=== PATIENT | female | born 1960 | race Hispanic/Latino ===

== ENCOUNTER 2017-04-12 11:26 | Inpatient (IN) | payer MEDICARE ==
--- NOTE | 2017-04-12 11:37 | C.PDOC ---
History Of Present Illness PMHx of PE, LE DVTs, HTN, Left foot drop, S/P Gastric Bypass surgery and cholecystectomy Time Seen by Provider: 04/12/17 11:36 Chief Complaint (Nursing): Chest Pain Past Medical History Vital Signs: Last Vital Signs Temp 97.8 F 04/12/17 11:28 Pulse 80 04/12/17 11:28 Resp 18 04/12/17 11:28 BP 118/81 04/12/17 11:28 Pulse Ox 100 04/12/17 11:37 - Medical History PMH: Back Problems, Deep Vein Thrombosis, HTN, Pulmonary Embolism Denies: Chronic Kidney Disease Surgical History: Back Surgery - [facility] Procedures RESECTION OF GALLBLADDER, PERCUTANEOUS ENDOSCOPIC APPROACH (11/01/15) Family History: States: Unknown Family Hx - Social History Hx Alcohol Use: Yes Hx Substance Use: No - Immunization History Hx Tetanus Toxoid Vaccination: No Hx Influenza Vaccination: No Hx Pneumococcal Vaccination: No ED Course And Treatment ECG: Interpreted By Me ECG Rhythm: Sinus Rhythm ECG Interpretation: Normal Rate From EC O2 Sat by Pulse Oximetry: 100 Progress - Data Reviewed Data Reviewed: Lab, Diagnostic imaging, EKG, Old records
--- NOTE | 2017-04-12 11:58 | C.PDOC ---
History Of Present Illness 56 y/o female presents to ED s/p trip and fall prior to arrival, pt now complaining of left chest, left elbow and left knee injury with abrasions to the elbow. She tripped and fell onto her left side. Left elbow pain worsens with movement. Pt reports pending prescription fill of foot brace for chronic left foot drop. Pt denies head injury. Pt states while falling, "I was twisting and my left chest started hurting." Pain is diffuse to left side and constant, worse with breathing. Questionable direct chest wall trauma. Pt also with abrasion to left knee, pain worsens with flexion. 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 PS PENDING RX FILL OF FOOT BRACE FOR CHRONIC L FOOT DROP. TRIPPED, FELL ONTO L SIDE. PAIN L ELBOW WORSE W MOVEMENT, +ABRASIONS. DENIES HEAD INJURY. PS WHILE FALLING "I WAS TWISTING AND MY L CHEST STARTED HURTING". PAIN DIFFUSE LEFT SIDED, CONSTANT. ? DIRECT CHEST WALL TRAUMA. WORSE W BREATHING. +L KNEE ABRASION, PAIN WORSE W FLEXION. PS CURRENT SKIN LESIONS DUE TO "SUN POISONING THAT I GET EVER SINCE I WAS A CHILD" ONSET AFTER RECENT PROLONGED SUN EXPOSURE. CURRENT LESIONS SIMILIAR TO PRIOR NONCOMPLIANT W ANTICOAGULANT SINCE 01/2017. PMHx of PE, LE DVTs, HTN, Left foot drop, S/P Gastric Bypass surgery and cholecystectomy EXAM MILD DIST NONTOXIC HEENT ATRAUM NECK SUPPLE NONTEND LUNGS CTA B/L NO W/R/R CHEST WALL ATRAUM NO CREPITUS. +GEN TEND L ANT CHEST WALL/ ABD NEG EXT L ELBOW LIMITED SUPINATION DUE TO PAIN. +TEND OVER RADIAL HEAD. FULL ROM L KNEE, PAIN W HYPERFLEX. NO DEFORM. SKIN +ABRASION L HAND PALM. +ABRASION INNER R WRIST. +ABRASION L KNEE. NEURO INTACT - HPI Time Seen by Provider: 04/12/17 11:36 Chief Complaint (Nursing): Chest Pain History Per: Patient History/Exam Limitations: no limitations Onset/Duration Of Symptoms: Hrs Location Of Injury: Left: Chest, Elbow, Knee Severity: Moderate Recent travel outside of the [place]: No - Fall Fall:Prior To Injury: Tripped Past Medical History Reviewed: Historical Data, Nursing Documentation, Vital Signs Vital Signs: Last Vital Signs Temp 97.8 F 04/12/17 11:28 Pulse 79 04/12/17 14:19 Resp 12 04/12/17 14:19 BP 146/79 04/12/17 14:19 Pulse Ox 99 04/12/17 14:19 - Medical History PMH: Back Problems, Deep Vein Thrombosis, HTN, Pulmonary Embolism Surgical History: Back Surgery - [facility] Procedures RESECTION OF GALLBLADDER, PERCUTANEOUS ENDOSCOPIC APPROACH (11/01/15) Family History: States: Unknown Family Hx - Social History Hx Alcohol Use: Yes Hx Substance Use: No - Immunization History Hx Tetanus Toxoid Vaccination: No Hx Influenza Vaccination: No Hx Pneumococcal Vaccination: No Review Of Systems Except As Marked, All Systems Reviewed And Found Negative. Respiratory: Negative for: Shortness of Breath Gastrointestinal: Negative for: Vomiting, Abdominal Pain Musculoskeletal: Positive for: Other (left chest, left elbow and left knee pain) Skin: Positive for: Other (abrasions to left elbow and knee) Neurological: Negative for: Weakness, Numbness Physical Exam - Physical Exam Appears: Non-toxic, In Acute Distress (mild) Skin: Warm, Dry, No Rash, Jaundice, Other (Abrasion to palmar aspect left hand and innder right wrist. Abrasion to left knee. SCATTERED SCABS FACE, NECK, FOREARMS AND LOWER LEGS DUE TO "SUN POISONING") Head: Atraumatic, Normacephalic Eye(s): bilateral: Scleral Icterus Neck: Normal, Normal ROM, No Midline Cervical Tenderness, No Paracervical Tenderness, Supple Chest: Symmetrical, No Deformity, Tenderness (left anterior chest wall), No Ecchymosis, Other (no crepitus) Cardiovascular: Rhythm Regular, No Murmur Respiratory: Normal Breath Sounds, No Accessory Muscle Use, No Rales, No Rhonchi , No Wheezing Gastrointestinal/Abdominal: Normal Exam, Soft, No Tenderness Extremity: Normal ROM (Full ROM left knee, pain with hyperflexion), Capillary Refill (<2 seconds), No Deformity, Other (Left elbow limited supination due to pain, tenderness over radial head.) Neurological/Psych: Oriented x3, Normal Speech, Normal Motor, Normal Sensation ED Course And Treatment - Laboratory Results Result Diagrams: 04/12/17 12:31 04/12/17 12:31 Interpretation Of Abnormal: PRIOR ABN TB/DB 10/2015 BUT CURRENT MORE ELEVATED COMPARED TO PRIOR ECG: Interpreted By Me ECG Rhythm: Sinus Rhythm ECG Interpretation: Normal Rate From EC (BPM) O2 Sat by Pulse Oximetry: 100 (room air) Pulse Ox Interpretation: Normal Orthopedic Time Performed: 14:01 Time Out: Side verified Procedure: Splint Type: Short Location: Left, Arm Consent obtained: Verbal Performed by: Attending Physician Diagnosis: Fracture Type: Closed, Minimally displaced Location: Left Bone: Radius Capillary refill: Normal Distal Sensation: Normal Distal Motor Function: Normal Capillary Refill: Normal Compartment: Normal Distal Sensation: Normal Distal Motor Function: Normal Patient tolerated procedure: Well Notes:: BASITRACIN APPLIED TO ABRASION, WOUND DRESSED PRIOR TO SPLINT APPLICATION. Progress - Re-Evaluation Re-evaluation Note: 04/12/17 14:00 PERSIST PAIN. PS PRIOR HO HYPOKALEMIA W LOW MAGNESIUM. PRIOR HO ABN LFT. 04/12/17 14:21 D/W DR TIWARI AWARE OF ER FINDINGS WILL ADMIT. CONSULT ORTHO MORTGAGE LOAN OFFICER ORIGINATOR - Data Reviewed Data Reviewed: Lab, Diagnostic imaging, EKG, Old records - Continuity of Care Discussed patient case with:: Patient, Covering for PMD Medical Decision Making Medical Decision Making: Plan: * EKG * XR left knee, ribs and chest, elbow * wound care * labs * IV fluids * morphine * lidoderm Disposition Counseled Patient/Family Regarding: Studies Performed, Diagnosis - Disposition Disposition: HOSPITALIZED Disposition Time: 14:24 Condition: STABLE - POA Present On Arrival: Falls Or Trauma - Clinical Impression Clinical Impression: Hypokalemia, Abnormal bilirubin test, Elbow fracture, Rib fracture - Scribe Statement The provider has reviewed the documentation as recorded by the Yanira Saldana Provider Attestation: All medical record entries made by the Yanira were at my direction and personally dictated by me. I have reviewed the chart and agree that the record accurately reflects my personal performance of the history, physical exam, medical decision making, and the department course for this patient. I have also personally directed, reviewed, and agree with the discharge instructions and disposition. Decision To Admit - Pt Status Changed To: Hospital Disposition Of: Inpatient - Admit Certification Admit to Inpatient:: After my assessment, the patient will require hospitalization for at least two midnights. This is because of the severity of symptoms shown, intensity of services needed, and/or the medical risk in this patient being treated as an outpatient. - InPatient: Physician Admission Certification: I certify that this patient requires 2 or more midnights of care for the following reason:: SEE NOTE - . Bed Request Type: Regular Admitting Physician: Glenn Tiwari Patient Diagnosis: Hypokalemia, Abnormal bilirubin test, Elbow fracture, Rib fracture
[2017-04-12] MEDS ORDERED: Lidocaine 5% Patch TD STA (12:01)
[2017-04-12] MEDS ORDERED: Lidocaine 5% Patch TD ONE (12:21)
[2017-04-12 12:35] LABS: BASO % 0.8 % (0.0-2.0); EOS # 0.2 K/uL (0.0-0.7); EOS % 3.1 % (0.0-4.0); HEMOGLOBIN 9.4 g/dL (11.0-16.0); LYMPH # 1.8 K/uL (1.0-4.3); LYMPH % 33.5 % (20.0-40.0); MEAN CELL VOLUME 95.5 fL (81.0-99.0); MEAN CORPUSCULAR HGB CONC 32.4 g/dL (33.0-37.0); MEAN PLATELET VOLUME 8.4 fL (7.2-11.7); MONO # 0.5 K/uL (0.0-0.8); MONO % 8.8 % (0.0-10.0); NEUT # 2.9 K/uL (1.8-7.0); NEUT % 53.8 % (50.0-75.0); NRBC % 0.1 % (0.0-2.0); RBC 3.04 Mil/uL (3.80-5.20); RED CELL DISTRIBUTION WIDTH 15.5 % (11.5-14.5); WHITE BLOOD COUNT 5.3 K/uL (4.8-10.8)
[2017-04-12 12:42] LABS: PROTHROMBIN TIME 11.8 SECONDS (9.7-12.2)
[2017-04-12 12:44] LABS: ALBUMIN 2.6 g/dL (3.5-5.0)
[2017-04-12] MEDS ORDERED: Potassium Chloride 20 mEq/15 ml LIQ UD PO STA (13:16)
[2017-04-12 13:20] LABS: ALB/GLOB RATIO 0.9 (1.0-2.1); AST/SGOT 32 U/L (14-36); BLOOD UREA NITROGEN 9 mg/dL (7-17); CALCIUM 7.7 mg/dl (8.6-10.4); GFR AFRICAN-AMERICAN > 60; GFR NON-AFRICAN AMERICAN 52
[2017-04-12 13:21] LABS: ALT/SGPT 35 U/L (9-52)
[2017-04-12] MEDS ORDERED: Potassium Chloride 20 mEq/15 ml LIQ UD ONE (13:22)
[2017-04-12 13:46] LABS: BILIRUBIN,DIRECT 2.1 mg/dL (0.0-0.4)
--- NOTE | 2017-04-12 13:55 | RAD ---
PROCEDURE: Radiographs of the left elbow. HISTORY: TRAUMA COMPARISON: No prior. FINDINGS: BONES: No evidence of acute displaced fracture nor dislocation. The osseous structures appear intact. There is a small somewhat triangular-shaped bony projection arising from the medial margin distal the diametaphysis of the left humerus consistent with a supracondylar process of the humerus. JOINTS: No significant osteoarthritis. SOFT TISSUES: The soft tissues appear grossly unremarkable JOINT EFFUSION: No evidence of posterior nor significant anterior joint effusion. OTHER FINDINGS: None IMPRESSION: No acute fractures. Incidental note made of supracondylar process distal medial humerus as above
[2017-04-12] MEDS ORDERED: Bacitracin 500 Units/gm Oint Foilpak UD ONE (14:00)
--- NOTE | 2017-04-12 14:06 | RAD ---
PROCEDURE: Left Knee Radiographs. HISTORY: Pain. COMPARISON: None. FINDINGS: BONES: No evidence acute displaced fracture nor dislocation. JOINTS: Joint spaces appear relatively preserved. No significant osteoarthritis. Osteoarthritis. JOINT EFFUSION: None. OTHER FINDINGS: Minor vascular calcifications are present. IMPRESSION: No evidence of acute displaced fracture nor dislocation.
--- NOTE | 2017-04-12 14:33 | RAD ---
PROCEDURE: Radiographs of the Chest and Left Ribs. HISTORY: TRAUMA COMPARISON: 11/04/2015. TECHNIQUE: Frontal radiograph of the chest and multiple oblique radiographs of the left ribs were obtained. FINDINGS: LEFT RIBS: No acute rib fracture or focal lesion visualized. LUNGS: The lungs are well inflated and clear. PLEURA: No pneumothorax or pleural fluid. CARDIOVASCULAR: Normal sized heart. No pulmonary vascular congestion. OTHER FINDINGS: Status post posterior spinal fixation in the lower lumbar spine. There is a running suture in the epigastrium. IMPRESSION: No acute rib fracture. Clear lungs.
[2017-04-12 14:51] LABS: MAGNESIUM 1.4 mg/dL (1.6-2.3)
[2017-04-12] MEDS ORDERED: Magnesium Sulfate 1 gm in D5W 1 GM/100 ML BAG IVPB ONE (16:18)
[2017-04-12] MEDS ORDERED: Morphine 4 MG/ML VIAL IV PRN (16:32)
--- NOTE | 2017-04-12 16:59 | CP.PCM.HP ---
<LyleJustino ariasri ArthurLisa - Last Filed: 04/12/17 19:15> History of Present Illness - History of Present Illness History of Present Illness: CC: "I fell this morning" HPI: 56 year old female with PMHx of DVT, PE, anemia, HTN, cholelithiasis, gastric bypass, left foot drop, IBS, presents to the ED after falling. Patient has a left foot drop that she uses a device that helps stabilize her. She reports that device was not working and has not replaced it. While walking on the sidewalk this morning, she fell onto her left side. Patient reports having pain in her left arm, elbow, knee and ribs. She has chest and rib pain with breathing and movement. Patient reports having nausea upon arrival, dysuria, dysphagia, and leg/ankle swelling. Patient has noticed a change in vision over the last week and 17lbs weight loss over 3 weeks. In the ED, the patient had potassium level of 2.1 Patient denies chest pain due to the heart, abdominal pain, vomiting, fever, shortness of breath, cough, and dizziness. PMD: none PMHX: DVT and PE 2014; anemia, left foot drop, HTN, IBS PSx:gastric bypass 1999; back surgery 2011; tubal ligation 29 years ago; FamHx: Father "heart problems" & DM; Mother-seizures; siblings- healthy SocHx: "smokes 1-2 cigarettes per day for 12 years"; social drinker; denies drug use; does not work- on disability; lives in a "rooming" place Allergies: NKDA Medications: none; takes medications when given by hospital but after 30 days, runs out and does not refill. Present on Admission - Present on Admission Any Indicators Present on Admission: Yes History of DVT/PE: Yes Review of Systems - Constitutional Constitutional: Fatigue, Weight Loss, Weakness - EENT Eyes: Change in Vision, Irritation, Loss of Vision Nose/Mouth/Throat: Dry Mouth, Dysphagia, Sore Throat - Cardiovascular Cardiovascular: Leg Edema. absent: Chest Pain, Dyspnea, Palpitations - Respiratory Respiratory: Cough, Dyspnea on Exertion - Gastrointestinal Gastrointestinal: Diarrhea, Dysphagia, Nausea. absent: Abdominal Pain - Genitourinary Genitourinary: Difficulty Urinating, Dysuria - Musculoskeletal Musculoskeletal: Back Pain, Joint Swelling, Muscle Cramps, Numbness, Tingling - Integumentary Integumentary: Bleeding Lesions, Rash, Sores, Swelling - Endocrine Endocrine: Fatigue. absent: Palpitations - Hematologic/Lymphatic Hematologic: absent: Easy Bleeding, Easy Bruising Past Patient History - Infectious Disease Hx of Infectious Diseases: None - Past Medical History & Family History Past Medical History?: Yes - Past Social History Smoking Status: Former Smoker - CARDIAC Hx Hypertension: Yes - PULMONARY Hx Pulmonary Embolism: Yes - NEUROLOGICAL Hx Neurological Disorder: No - HEENT Hx Epistaxis: Yes - RENAL Hx Chronic Kidney Disease: No - ENDOCRINE/METABOLIC Hx Endocrine Disorders: No - HEMATOLOGICAL/ONCOLOGICAL Hx Blood Disorders: No - INTEGUMENTARY Hx Dermatological Problems: Yes - MUSCULOSKELETAL/RHEUMATOLOGICAL Hx Musculoskeletal Disorders: Yes Other/Comment: Left foot drop - GASTROINTESTINAL Hx Gastrointestinal Disorders: Yes Hx Gastroesophageal Reflux: Yes Hx Irritable Bowel: Yes - GENITOURINARY/GYNECOLOGICAL Hx Genitourinary Disorders: No - PSYCHIATRIC Hx Substance Use: No - SURGICAL HISTORY Hx Surgeries: Yes Hx Gastric Bypass Surgery: Yes Other/Comment: Back Surgery for herniated Disc - ANESTHESIA Hx Anesthesia: Yes Hx Anesthesia Reactions: No Meds Allergies/Adverse Reactions: Allergies Allergy/AdvReac Type Severity Reaction Status Date / Time No Known Allergies Allergy Verified 04/12/17 11:30 Physical Exam - Constitutional Appears: No Acute Distress - Head Exam Head Exam: NORMAL INSPECTION, NORMOCEPHALIC - Eye Exam Eye Exam: EOMI, Normal appearance - ENT Exam ENT Exam: Mucous Membranes Moist - Neck Exam Neck exam: Positive for: Normal Inspection - Respiratory Exam Respiratory Exam: Clear to Auscultation Bilateral, NORMAL BREATHING PATTERN. absent: Rhonchi, Wheezes - Cardiovascular Exam Cardiovascular Exam: REGULAR RHYTHM, +S1, +S2. absent: Rubs - GI/Abdominal Exam GI & Abdominal Exam: Normal Bowel Sounds, Soft. absent: Tenderness - Extremities Exam Extremities exam: Positive for: pedal edema. Negative for: pedal pulses present - Neurological Exam Neurological exam: Alert, Oriented x3 - Psychiatric Exam Psychiatric exam: Normal Affect, Normal Mood - Skin Skin Exam: Dry, Intact, Normal Color, Warm Results - Vital Signs Recent Vital Signs: Last Vital Signs Temp 98.2 F 04/12/17 16:25 Pulse 81 04/12/17 16:25 Resp 18 04/12/17 16:25 BP 132/86 04/12/17 16:25 Pulse Ox 100 04/12/17 16:25 - Labs Result Diagrams: 04/12/17 12:31 04/12/17 12:31 Assessment & Plan (1) Fall Assessment and Plan: Ortho consulted: hellen Donaldson appreciated Left elbow xray: no fractures Left knee xray: no fractures Ribs w/Chest xray: no fractures Head/neck CT: mild chronic white matter ischemic changes; moderate central volume loss F/U morning labs Toxicology: f/u Alcohol: f/u A1c: f/u UA: f/u Thiamine 100mg PO daily Folic acid 1mg PO daily Wound care Status: Acute (2) Left leg injury Assessment and Plan: Left knee xray: no fractures Ortho consulted: hellen Donaldson appreciated Status: Acute (3) Left upper arm injury Assessment and Plan: Left elbow xray: no fractures Ortho consulted: hellen Donaldson appreciated Status: Acute (4) Hypokalemia Assessment and Plan: On admission, K+: 2.1 Replenished in ED: K+ 20mEq PO stat and 10mEq IV once On K+ 20mEq drip at 100mls/hr. Monitor CMP Status: Acute (5) Anemia Assessment and Plan: Monitor H/H 04/12: 9.01/28 Status: Acute (6) Foot drop, left Assessment and Plan: Fall precautions Status: Chronic (7) Chest pain Assessment and Plan: Rib/chest xray: no fractures EKG: nsr @81 LEFTY x 1: negative ROMIs x 2: pending Monitor Telemetry Status: Acute (8) History of DVT (deep vein thrombosis) Assessment and Plan: Patient is not compliant with medications Started heparin 5,000 SC Q12hr Status: Chronic (9) History of pulmonary embolus (PE) Assessment and Plan: Patient is not compliant with medications Started heparin 5,000 SC Q12hr Status: Chronic (10) Prophylactic measure Assessment and Plan: C/I SCDs Pepcid 20mg PO BID Heparin drip Heart healthy, 2 gram, advanced bite sized Fall precaution Status: Acute <Glenn Rodarte H - Last Filed: 04/13/17 09:55> Results - Vital Signs Recent Vital Signs: Last Vital Signs Temp 98.6 F 04/12/17 23:15 Pulse 76 04/13/17 08:17 Resp 20 04/13/17 08:17 BP 107/65 04/13/17 08:17 Pulse Ox 98 04/13/17 08:17 - Labs Result Diagrams: 04/12/17 12:31 04/13/17 08:13 Labs: Laboratory Results - last 24 hr 04/12/17 04/12/17 04/12/17 17:12 17:12 17:31 Sodium Potassium Chloride Carbon Dioxide Anion Gap BUN Creatinine Est GFR ( Amer) Est GFR (Non-Af Amer) Random Glucose Hemoglobin A1c 4.7 Calcium Total Bilirubin AST ALT Alkaline Phosphatase Total Creatine Kinase 70 CK-MB (Mass) 1.10 Troponin I, Quant < 0.0120 Total Protein Albumin Globulin Albumin/Globulin Ratio Urine Color Urine Clarity Urine pH Ur Specific [place] Urine Protein Urine Glucose (UA) Urine Ketones Urine Blood Urine Nitrate Urine Bilirubin Urine Urobilinogen Ur Leukocyte Esterase Urine WBC (Auto) Urine RBC (Auto) Ur Squamous Epith Cells Urine Bacteria Urine Opiates Screen Urine Methadone Screen Ur Barbiturates Screen Ur Phencyclidine Scrn Ur Amphetamines Screen U Benzodiazepines Scrn U Oth Cocaine Metabols U Cannabinoids Screen Alcohol, Quantitative < 10 04/13/17 04/13/17 04/13/17 06:06 07:33 08:13 Sodium 140 138 Potassium 6.7 H* D 3.5 L Chloride 117 H 109 H Carbon Dioxide 16 L 20 L Anion Gap 14 13 BUN 6 L 8 Creatinine 0.9 1.1 Est GFR ( Amer) > 60 > 60 Est GFR (Non-Af Amer) > 60 52 Random Glucose 81 84 Hemoglobin A1c Calcium 5.9 L* D 7.5 L Total Bilirubin 3.9 H AST 25 ALT 31 Alkaline Phosphatase 86 Total Creatine Kinase 51 CK-MB (Mass) 0.98 Troponin I, Quant < 0.0120 Total Protein 4.6 L Albumin 2.0 L D Globulin 2.6 Albumin/Globulin Ratio 0.8 L Urine Color Mitzy Urine Clarity Hazy Urine pH 6.0 Ur Specific [place] 1.005 Urine Protein Negative Urine Glucose (UA) Normal Urine Ketones Negative Urine Blood Negative Urine Nitrate Positive H Urine Bilirubin Negative Urine Urobilinogen Normal Ur Leukocyte Esterase 2+ H Urine WBC (Auto) 16 H Urine RBC (Auto) 1 Ur Squamous Epith Cells 1 Urine Bacteria Rare Urine Opiates Screen Urine Methadone Screen Ur Barbiturates Screen Ur Phencyclidine Scrn Ur Amphetamines Screen U Benzodiazepines Scrn U Oth Cocaine Metabols U Cannabinoids Screen Alcohol, Quantitative 04/13/17 08:29 Sodium Potassium Chloride Carbon Dioxide Anion Gap BUN Creatinine Est GFR ( Amer) Est GFR (Non-Af Amer) Random Glucose Hemoglobin A1c Calcium Total Bilirubin AST ALT Alkaline Phosphatase Total Creatine Kinase CK-MB (Mass) Troponin I, Quant Total Protein Albumin Globulin Albumin/Globulin Ratio Urine Color Urine Clarity Urine pH Ur Specific [place] Urine Protein Urine Glucose (UA) Urine Ketones Urine Blood Urine Nitrate Urine Bilirubin Urine Urobilinogen Ur Leukocyte Esterase Urine WBC (Auto) Urine RBC (Auto) Ur Squamous Epith Cells Urine Bacteria Urine Opiates Screen Positive Urine Methadone Screen Negative Ur Barbiturates Screen Negative Ur Phencyclidine Scrn Negative Ur Amphetamines Screen Negative U Benzodiazepines Scrn Negative U Oth Cocaine Metabols Negative U Cannabinoids Screen Negative Alcohol, Quantitative Attending/Attestation - Attestation I have personally seen and examined this patient.: Yes I have fully participated in the care of the patient.: Yes I have reviewed all pertinent clinical information: Yes Notes (Text): Medical Attending: Patient was seen and examined by me. Agree with the above note by the resident. The patient has a history of left foot drop and she reports that because of this she has had difficulty walking and therefore fell - striking her left chest as well as left elbow. She was in some pain when I saw her in the ER. Very concerning was the severe hypokalemia. She has a history of gastric by pass many years ago and reports poor absorption and also inabiltiy to eat or hold down food. She reports often has had diarrhea as well. Will place on IVF with additional KCL supplements. She needs to be monitored on telemetry as well. Replace Mg level. Check a UDS The patient when asked if she had chest pain or palpitations before falling insist that she did not have any chest discomfort that led up to her fall but that this was due to her ongoing foot weakness and dropping that she has had for some time now. She will need additional checks on her K level, troponins, and future repeat EKGs. thank you Glenn Rodarte
--- NOTE | 2017-04-12 17:24 | CT ---
PROCEDURE: CT HEAD WITHOUT CONTRAST. HISTORY: fall COMPARISON: No prior study available for comparison TECHNIQUE: Axial computed tomography images were obtained through the head/brain without intravenous contrast. Radiation dose: Total exam DLP = 862.28 mGy-cm. This CT exam was performed using one or more of the following dose reduction techniques: Automated exposure control, adjustment of the mA and/or kV according to patient size, and/or use of iterative reconstruction technique. FINDINGS: HEMORRHAGE: No acute parenchymal, subarachnoid or extra-axial hemorrhage. BRAIN: Mild to moderate diffuse/confluent chronic periventricular white matter ischemic changes are seen extending peripherally into the deep white matter both cerebral hemispheres. Moderate slightly more central volume loss evidenced by disproportionate enlargement of the ventricles compared the sulci VENTRICLES: Unremarkable. No hydrocephalus. CALVARIUM: Unremarkable. PARANASAL SINUSES: Unremarkable as visualized. No significant inflammatory changes. MASTOID AIR CELLS: Unremarkable as visualized. No inflammatory changes. OTHER FINDINGS: None. IMPRESSION: No acute intracranial hemorrhage. Mild chronic white matter ischemic changes. Moderate central volume loss. Under spine at approximately opaque
[2017-04-12] MEDS: Morphine 4 MG/ML VIAL IV PRN (17:55)
[2017-04-12] MEDS ORDERED: DiphenhydrAMINE 50 mg/ml Inj IVP STA (20:28)
[2017-04-13] MEDS: Potassium Chloride 20 mEq/15 ml LIQ UD PO SCH ×3 (01:20→04:59)
[2017-04-13] MEDS: Morphine 4 MG/ML VIAL IV PRN ×2 (05:18→18:15)
[2017-04-13] MEDS ORDERED: Benzocaine Gel 7.5% MM PRN (05:24)
[2017-04-13 06:26] LABS: AST/SGOT 25 U/L (14-36); BLOOD UREA NITROGEN 6 mg/dL (7-17); GFR AFRICAN-AMERICAN > 60; GFR NON-AFRICAN AMERICAN > 60
[2017-04-13 06:27] LABS: ALT/SGPT 31 U/L (9-52)
[2017-04-13 06:33] LABS: CK-MB 0.98 ng/mL (0.0-3.38)
[2017-04-13 06:46] LABS: ALB/GLOB RATIO 0.8 (1.0-2.1); CALCIUM 5.9 mg/dl (8.6-10.4)
[2017-04-13 08:10] LABS: SQUAMOUS EPITHIAL 1 /hpf (0-5); URINE BACTERIA RARE (<OCC); URINE BILIRUBIN NEGATIVE (NEGATIVE); URINE BLOOD NEGATIVE (NEGATIVE); URINE CLARITY Hazy (Clear); URINE COLOR Amber (YELLOW); URINE GLUCOSE (UA) NORMAL (Normal); URINE LEUKOCYTE ESTERASE 2+ Leu/uL (Negative); URINE NITRATE POSITIVE (NEGATIVE); URINE PROTEIN NEGATIVE (NEGATIVE); URINE UROBILINOGEN NORMAL mg/dL (0.2-1.0)
[2017-04-13 08:29] LABS: BLOOD UREA NITROGEN 8 mg/dL (7-17); GFR AFRICAN-AMERICAN > 60; GFR NON-AFRICAN AMERICAN 52
[2017-04-13 08:30] LABS: CALCIUM 7.5 mg/dl (8.6-10.4)
[2017-04-13 08:58] LABS: BARBITURATES, UR NEGATIVE (NEGATIVE)
[2017-04-13 08:59] LABS: BENZODIAZEPINES, UR NEGATIVE (NEGATIVE)
[2017-04-13 09:03] LABS: PHENCYCLIDINE, UR NEGATIVE (NEGATIVE)
[2017-04-13 09:27] LABS: OPIATES, UR POSITIVE (NEGATIVE)
--- NOTE | 2017-04-13 11:04 | CP.PCM.PN ---
Subjective - Date & Time of Evaluation Date of Evaluation: 04/13/17 Time of Evaluation: 10:57 - Subjective Subjective: Patient still complaining of left elbow pain. Denies numbness/tingling. Says knee pain has improved. Denies CP/SOB/dizzinessn/v. She has had chronic left drop foot, and no longer has an AFO, and this contributed to her fall. Review of Systems - Review of Systems All systems: reviewed and no additional remarkable complaints except - Constitutional Additional comments: denies fever/chills - Cardiovascular Cardiovascular: As Per HPI - Respiratory Respiratory: As Per HPI - Gastrointestinal Gastrointestinal: As Per HPI - Musculoskeletal Musculoskeletal: As Par HPI - Integumentary Integumentary: UNREMARKABLE - Neurological Additional comments: left foot drop - Hematologic/Lymphatic Hematologic: UNREMARKABLE Objective - Vital Signs/Intake and Output Vital Signs (last 24 hours): Temp Pulse Resp BP Pulse Ox 98.6 F 76 20 107/65 98 04/12/17 23:15 04/13/17 08:17 04/13/17 08:17 04/13/17 08:17 04/13/17 08:17 - Medications Medications: Current Medications Benzocaine (Orajel) 0 MM DAILY@PRN PRN Famotidine (Pepcid) 20 mg PO BID [facility] Last Admin: 04/12/17 17:54 Dose: 20 mg Folic Acid (Folic Acid) 1 mg PO DAILY [facility] Last Admin: 04/12/17 17:54 Dose: 1 mg Heparin Sodium (Porcine) (Heparin) 5,000 units SC Q12H [facility] Last Admin: 04/13/17 04:57 Dose: 5,000 units Ketorolac Tromethamine (Toradol) 15 mg IVP Q6 PRN PRN Reason: Pain, moderate (4-7) Morphine Sulfate (Morphine) 4 mg IV Q4 PRN PRN Reason: Pain, severe (8-10) Last Admin: 04/13/17 05:18 Dose: 4 mg Ondansetron HCl (Zofran Inj) 4 mg IVP Q6H PRN PRN Reason: Nausea/Vomiting Saliva Substitute (Mouth Kote 236 Ml) 1 ml MM Q4H PRN PRN Reason: Dry mouth Thiamine HCl (Vitamin B1 Tab) 100 mg PO DAILY [facility] Last Admin: 04/12/17 17:55 Dose: 100 mg - Labs Labs: 04/13/17 08:13 PT 11.8 SECONDS (9.7-12.2) 04/12/17 12:31 INR 1.0 04/12/17 12:31 APTT 39 SECONDS (21-34) H 04/12/17 12:31 - Constitutional Appears: Well, No Acute Distress - Head Exam Head Exam: ATRAUMATIC - Respiratory Exam Respiratory Exam: NORMAL BREATHING PATTERN - Cardiovascular Exam Additional comments: +radial pulse - Extremities Exam Additional comments: LUE: sling and splint intact TTP over radial head sensation intact to rad/uln/med nerve distrib - Neurological Exam Neurological Exam: Alert, Awake, Oriented x3 Neuro motor strength exam: Left Upper Extremity: 5 (+finger flex/ext/abd/add, wrist flex/ext) - Psychiatric Exam Psychiatric exam: Normal Affect, Normal Mood - Skin Skin Exam: Dry, Normal Color, Warm Additional comments: splint to LUE Assessment and Plan (1) Nondisplaced fracture of neck of left radius Assessment & Plan: imaging reviewed by Dr. Hdez appears non displaced radial neck fracture, consistent with symptoms MRI to confirm posterior splint sling ice pain medication d/w Dr. Hdez, agrees with above Addendum: MRI appreciated. Appropriately treated with long arm posterior splint and sling. Patient orthopedically stable for d/c. Keep splint and sling dry and intact. Patient given rx for AFO (not stocked in hospital). Patient to f/u in office of Dr. Hdez in 1 week call for appointment [phone]. Status: Acute (2) Foot drop, left Assessment & Plan: AFO ordered PT/OT VTE proph encourage OOB above d/w Dr. Hdez, agrees Status: Chronic (3) Ulnar collateral ligament sprain of left elbow, initial encounter Assessment & Plan: posterior splint Status: Acute Procedures Attestation:: I certify that I have explained the specified Operation(s) or Procedure(s), risks, benefits and reasonable alternatives to the Patient and/or other person responsible. The opportunity was given to ask questions and all questions answered - Orthopedic Splinting/Casting Injury #1 Side: left Upper Extremity Injury Location: elbow Upper Extremity Immobilizer: posterior splint Additional comments: patient complaining of splint falling off and being uncomfortable. Removed for MRI. Well padded long arm posterior splint applied. Patient tolerated well. NVID pre and post splint application. Radiology Interpretation - Hydrometer Calibrator Hydrometer Calibrator:: Radiologist, Associate Engineer - Radiology Interpretation #2 Interpretation: Patient Name / ID : KIMBERLY Elizondo [id number] Exam Date : 04/12/2017 12:04:11 ( Approved ) Study Comment : Sex / Age : F 6Y Creator : Dima Whitlock MD Dictator : Dima Whitlock MD Application Systems Engineer : Technology Instructor : Dima Whitlock MD Approver2 : Report Date : 04/12/2017 13:53:58 My Comment : PROCEDURE: Radiographs of the left elbow. HISTORY: TRAUMA COMPARISON: No prior. FINDINGS: BONES: No evidence of acute displaced fracture nor dislocation. The osseous structures appear intact. There is a small somewhat triangular-shaped bony projection arising from the medial margin distal the diametaphysis of the left humerus consistent with a supracondylar process of the humerus. JOINTS: No significant osteoarthritis. SOFT TISSUES: The soft tissues appear grossly unremarkable JOINT EFFUSION: No evidence of posterior nor significant anterior joint effusion - Radiology Interpretation #3 Interpretation: Patient Name / ID : KIMBERLY Elizondo [id number] Exam Date : 04/13/2017 12:01:19 ( Approved ) Study Comment : Sex / Age : F 6Y Creator : Maycol Vaca MD Dictator : Maycol Vaca MD Application Systems Engineer : Technology Instructor : Maycol Vaca MD Approver2 : Report Date : 04/13/2017 14:32:27 My Comment : MRI left elbow History: Injury. Comparison: X-ray dated 04/12/2017 Technique: Multi-echo multiplanar sequences were performed through the left elbow without the use of intravenous contrast. Findings: Biceps and brachialis tendon insertions are preserved. Mild insertional tendinopathy of the triceps tendon on the posterior olecranon. Fluid and edema seen within posterior soft tissues at the level of the olecranon bursa suggestive for edema and or mild olecranon bursitis. Prominent increased signal seen within the posterior olecranon demonstrating patchy decreased T1 signal and increased STIR signal suggestive for bone bruising and or subchondral osseous injury/subchondral fracturing. Mild reactive edema seen at the lateral aspect of the radial neck suggestive for mild bone bruising/subchondral osseous injury. Fraying with increased signal seen within the proximal attachment of the common flexor tendon suggestive for partial tearing and or moderate tendinopathy. Adjacent fraying with increased signal seen within the proximal attachment of the ulnar collateral ligament suggestive for partial tearing versus moderate to high grade strain. Moderate increased signal seen within the proximal attachment of the common extensor tendon suggestive for mild partial tearing and or moderate tendinopathy. Fraying with increased signal seen at the proximal attachments of the radial collateral and lateral ulnar collateral ligament suggestive for moderate partial tearing versus moderate grade sprains. Cartilage fibrillation and loss overlying the capitellum. Moderate elbow joint effusion. Ulnar nerve appears preserved as it traverses the cubital tunnel. Impression: 1. Prominent increased signal seen within the posterior olecranon demonstrating patchy decreased T1 signal and increased STIR signal suggestive for bone bruising and or subchondral osseous injury/subchondral fracturing. 2. Mild reactive edema seen at the lateral aspect of the radial neck suggestive for mild bone bruising/subchondral osseous injury. 3. Mild insertional tendinopathy of the triceps tendon on the posterior olecranon. 4. Fluid and edema seen within posterior soft tissues at the level of the olecranon bursa suggestive for edema and or mild olecranon bursitis. 5. Fraying with increased signal seen within the proximal attachment of the common flexor tendon suggestive for partial tearing and or moderate tendinopathy. 6. Adjacent fraying with increased signal seen within the proximal attachment of the ulnar collateral ligament suggestive for partial tearing versus moderate to high grade strain. 7. Moderate increased signal seen within the proximal attachment of the common extensor tendon suggestive for mild partial tearing and or moderate tendinopathy. 8. Fraying with increased signal seen at the proximal attachments of the radial collateral and lateral ulnar collateral ligament suggestive for moderate partial tearing versus moderate grade sprains. 9. Cartilage fibrillation and loss overlying the capitellum. 10. Moderate elbow joint effusion.
--- NOTE | 2017-04-13 14:34 | MRI ---
MRI left elbow History: Injury. Comparison: X-ray dated 04/12/2017 Technique: Multi-echo multiplanar sequences were performed through the left elbow without the use of intravenous contrast. Findings: Biceps and brachialis tendon insertions are preserved. Mild insertional tendinopathy of the triceps tendon on the posterior olecranon. Fluid and edema seen within posterior soft tissues at the level of the olecranon bursa suggestive for edema and or mild olecranon bursitis. Prominent increased signal seen within the posterior olecranon demonstrating patchy decreased T1 signal and increased STIR signal suggestive for bone bruising and or subchondral osseous injury/subchondral fracturing. Mild reactive edema seen at the lateral aspect of the radial neck suggestive for mild bone bruising/subchondral osseous injury. Fraying with increased signal seen within the proximal attachment of the common flexor tendon suggestive for partial tearing and or moderate tendinopathy. Adjacent fraying with increased signal seen within the proximal attachment of the ulnar collateral ligament suggestive for partial tearing versus moderate to high grade strain. Moderate increased signal seen within the proximal attachment of the common extensor tendon suggestive for mild partial tearing and or moderate tendinopathy. Fraying with increased signal seen at the proximal attachments of the radial collateral and lateral ulnar collateral ligament suggestive for moderate partial tearing versus moderate grade sprains. Cartilage fibrillation and loss overlying the capitellum. Moderate elbow joint effusion. Ulnar nerve appears preserved as it traverses the cubital tunnel. Impression: 1. Prominent increased signal seen within the posterior olecranon demonstrating patchy decreased T1 signal and increased STIR signal suggestive for bone bruising and or subchondral osseous injury/subchondral fracturing. 2. Mild reactive edema seen at the lateral aspect of the radial neck suggestive for mild bone bruising/subchondral osseous injury. 3. Mild insertional tendinopathy of the triceps tendon on the posterior olecranon. 4. Fluid and edema seen within posterior soft tissues at the level of the olecranon bursa suggestive for edema and or mild olecranon bursitis. 5. Fraying with increased signal seen within the proximal attachment of the common flexor tendon suggestive for partial tearing and or moderate tendinopathy. 6. Adjacent fraying with increased signal seen within the proximal attachment of the ulnar collateral ligament suggestive for partial tearing versus moderate to high grade strain. 7. Moderate increased signal seen within the proximal attachment of the common extensor tendon suggestive for mild partial tearing and or moderate tendinopathy. 8. Fraying with increased signal seen at the proximal attachments of the radial collateral and lateral ulnar collateral ligament suggestive for moderate partial tearing versus moderate grade sprains. 9. Cartilage fibrillation and loss overlying the capitellum. 10. Moderate elbow joint effusion.
[2017-04-13 14:41] LABS: PROTHROMBIN TIME 11.4 SECONDS (9.7-12.2)
[2017-04-13 14:47] LABS: IRON 128 ug/dL (37-170)
[2017-04-13 14:57] LABS: % IRON SATURATION 75 (20-55); TOTAL IRON BINDING CAPACITY 170 ug/dL (250-450)
[2017-04-13 15:17] LABS: FERRITIN 72.9 ng/mL
[2017-04-13 16:50] VITALS: O2SAT 99
[2017-04-13] MEDS ORDERED: DiphenhydrAMINE 50 mg/ml Inj IVP STA (19:26)
--- NOTE | 2017-04-13 19:36 | CP.PCM.PN ---
<Seth Tsang - Last Filed: 04/13/17 19:33> Subjective - Date & Time of Evaluation Date of Evaluation: 04/13/17 Time of Evaluation: 11:00 - Subjective Subjective: Patient was seen and examined at bedside. Patient was resting comfortably in bed with splint on left arm. Patient asked for an left leg/ankle brace. She complained of pruritis on arms and neck. She had no other complaints. She denied chest pain, shortness of breath, fever, n/v/d/c, headache, bleeding. Objective - Vital Signs/Intake and Output Vital Signs (last 24 hours): Temp Pulse Resp BP Pulse Ox 98.4 F 73 20 111/75 99 04/13/17 15:49 04/13/17 15:49 04/13/17 15:49 04/13/17 15:49 04/13/17 15:49 - Medications Medications: Current Medications Benzocaine (Orajel) 0 MM DAILY@PRN PRN Famotidine (Pepcid) 20 mg PO BID [facility] Last Admin: 04/13/17 18:16 Dose: 20 mg Folic Acid (Folic Acid) 1 mg PO DAILY [facility] Last Admin: 04/13/17 10:59 Dose: 1 mg Heparin Sodium (Porcine) (Heparin) 5,000 units SC Q12H [facility] Last Admin: 04/13/17 18:14 Dose: 5,000 units Ketorolac Tromethamine (Toradol) 15 mg IVP Q6 PRN PRN Reason: Pain, moderate (4-7) Morphine Sulfate (Morphine) 4 mg IV Q4 PRN PRN Reason: Pain, severe (8-10) Last Admin: 04/13/17 18:15 Dose: 4 mg Ondansetron HCl (Zofran Inj) 4 mg IVP Q6H PRN PRN Reason: Nausea/Vomiting Saliva Substitute (Mouth Kote 236 Ml) 1 ml MM Q4H PRN PRN Reason: Dry mouth Thiamine HCl (Vitamin B1 Tab) 100 mg PO DAILY [facility] Last Admin: 04/13/17 10:59 Dose: 100 mg - Labs Labs: 04/13/17 08:13 PT 11.4 SECONDS (9.7-12.2) 04/13/17 14:22 INR 1.0 04/13/17 14:22 APTT 38 SECONDS (21-34) H 04/13/17 14:22 - Constitutional Appears: Well - Head Exam Head Exam: ATRAUMATIC, NORMAL INSPECTION, NORMOCEPHALIC - Eye Exam Eye Exam: EOMI, Normal appearance, PERRL - ENT Exam ENT Exam: Mucous Membranes Moist - Neck Exam Neck Exam: Full ROM - Respiratory Exam Respiratory Exam: Clear to Ausculation Bilateral, NORMAL BREATHING PATTERN - Cardiovascular Exam Cardiovascular Exam: REGULAR RHYTHM, +S1, +S2. absent: Murmur - Rectal Exam Rectal Exam: Deferred - Back Exam Additional comments: left arm and forearm in splint - Neurological Exam Neurological Exam: Alert, Awake, Oriented x3 - Psychiatric Exam Psychiatric exam: Normal Affect, Normal Mood - Skin Skin Exam: Dry, Normal Color, Warm Additional comments: scabs present on arms b/l and neck causing pruritis Assessment and Plan - Assessment and Plan (Free Text) Assessment: (1) Fall Assessment and Plan: Ortho consulted: hellen Donaldson appreciated Left elbow xray: no fractures Left knee xray: no fractures Ribs w/Chest xray: no fractures Head/neck CT: mild chronic white matter ischemic changes; moderate central volume loss Toxicology: positive for opiates Alcohol: neg A1c: 4.7 UA: positive for nitrates, leuk esterase, wbc Thiamine 100mg PO daily Folic acid 1mg PO daily Wound care Status: Acute (2) Left leg injury Assessment and Plan: Left knee xray: no fractures Ortho consulted: hellen Donaldson appreciated Status: Acute (3) Left upper arm injury Assessment and Plan: 04/13: appears non displaced radial neck fracture, consistent with symptoms 04/13: Per ortho, Patient orthopedically stable for d/c. Keep splint and sling dry and intact. Patient given rx for AFO (not stocked in hospital). Patient to f /u in office of Dr. Renae in 1 week call for appointment [phone]. Left elbow xray: no fractures Ortho consulted: hellen Donaldson appreciated Status: Acute (4) Hypokalemia Assessment and Plan: 04/13: K+: 3.5. Previous elevation of K+ was falsely elevated due to blood draw near site of potassium iv administration On admission, K+: 2.1 Replenished in ED: K+ 20mEq PO stat and 10mEq IV once On K+ 20mEq drip at 100mls/hr. Monitor CMP Status: Acute (5) Anemia Assessment and Plan: Monitor H/H 04/12: 9.01/28 Status: Acute (6) Foot drop, left Assessment and Plan: Fall precautions Status: Chronic (7) Chest pain Assessment and Plan: Rib/chest xray: no fractures EKG: nsr @81 LEFTY x 3: negative Monitor Telemetry Status: Acute (8) History of DVT (deep vein thrombosis) Assessment and Plan: Patient is not compliant with medications Started heparin 5,000 SC Q12hr Status: Chronic (9) History of pulmonary embolus (PE) Assessment and Plan: Patient is not compliant with medications Started heparin 5,000 SC Q12hr Status: Chronic (10) Prophylactic measure Assessment and Plan: C/I SCDs Pepcid 20mg PO BID Heparin drip Heart healthy, 2 gram, advanced bite sized Fall precaution Status: Acute <Triston Wyatt - Last Filed: 04/13/17 19:55> Objective - Vital Signs/Intake and Output Vital Signs (last 24 hours): Temp Pulse Resp BP Pulse Ox 98.4 F 73 20 111/75 99 04/13/17 15:49 04/13/17 15:49 04/13/17 15:49 04/13/17 15:49 04/13/17 15:49 - Medications Medications: Current Medications Benzocaine (Orajel) 0 MM DAILY@PRN PRN Famotidine (Pepcid) 20 mg PO BID [facility] Last Admin: 04/13/17 18:16 Dose: 20 mg Folic Acid (Folic Acid) 1 mg PO DAILY [facility] Last Admin: 04/13/17 10:59 Dose: 1 mg Heparin Sodium (Porcine) (Heparin) 5,000 units SC Q12H [facility] Last Admin: 04/13/17 18:14 Dose: 5,000 units Ketorolac Tromethamine (Toradol) 15 mg IVP Q6 PRN PRN Reason: Pain, moderate (4-7) Morphine Sulfate (Morphine) 4 mg IV Q4 PRN PRN Reason: Pain, severe (8-10) Last Admin: 04/13/17 18:15 Dose: 4 mg Ondansetron HCl (Zofran Inj) 4 mg IVP Q6H PRN PRN Reason: Nausea/Vomiting Saliva Substitute (Mouth Kote 236 Ml) 1 ml MM Q4H PRN PRN Reason: Dry mouth Thiamine HCl (Vitamin B1 Tab) 100 mg PO DAILY [facility] Last Admin: 04/13/17 10:59 Dose: 100 mg - Labs Labs: 04/13/17 08:13 PT 11.4 SECONDS (9.7-12.2) 04/13/17 14:22 INR 1.0 04/13/17 14:22 APTT 38 SECONDS (21-34) H 04/13/17 14:22 Attending/Attestation - Attestation I have personally seen and examined this patient.: Yes I have fully participated in the care of the patient.: Yes I have reviewed all pertinent clinical information, including history, physical exam and plan: Yes Notes (Text): 04/13/17 19:54 Patient was seen and examined at 8:30 AM 04/13/17 652 B Exam, Assessment and Plan were thoroughly gone over with the Resident. Triston Wyatt D.O.
[2017-04-14] MEDS ORDERED: DiphenhydrAMINE 50 mg/ml Inj IVP STA (05:29)
--- NOTE | 2017-04-14 07:40 | CP.PCM.PN ---
Subjective - Date & Time of Evaluation Date of Evaluation: 04/14/17 Time of Evaluation: 07:37 - Subjective Subjective: Patient complains of continued pain in her arm, but moving a little better today. Denies knee pain. Denies numbness/tingling Review of Systems - Review of Systems All systems: reviewed and no additional remarkable complaints except - Cardiovascular Cardiovascular: UNREMARKABLE - Respiratory Respiratory: UNREMARKABLE - Gastrointestinal Gastrointestinal: UNREMARKABLE - Musculoskeletal Musculoskeletal: As Par HPI - Integumentary Integumentary: UNREMARKABLE - Neurological Neurological: As Per HPI Objective - Vital Signs/Intake and Output Vital Signs (last 24 hours): Temp Pulse Resp BP Pulse Ox 98.3 F 72 20 111/78 99 04/13/17 23:00 04/14/17 03:30 04/13/17 23:00 04/13/17 23:00 04/13/17 23:00 - Medications Medications: Current Medications Benzocaine (Orajel) 0 MM DAILY@PRN PRN Famotidine (Pepcid) 20 mg PO BID [facility] Last Admin: 04/13/17 18:16 Dose: 20 mg Folic Acid (Folic Acid) 1 mg PO DAILY [facility] Last Admin: 04/13/17 10:59 Dose: 1 mg Heparin Sodium (Porcine) (Heparin) 5,000 units SC Q12H [facility] Last Admin: 04/14/17 05:30 Dose: 5,000 units Ketorolac Tromethamine (Toradol) 15 mg IVP Q6 PRN PRN Reason: Pain, moderate (4-7) Morphine Sulfate (Morphine) 4 mg IV Q4 PRN PRN Reason: Pain, severe (8-10) Last Admin: 04/13/17 18:15 Dose: 4 mg Ondansetron HCl (Zofran Inj) 4 mg IVP Q6H PRN PRN Reason: Nausea/Vomiting Saliva Substitute (Mouth Kote 236 Ml) 1 ml MM Q4H PRN PRN Reason: Dry mouth Thiamine HCl (Vitamin B1 Tab) 100 mg PO DAILY [facility] Last Admin: 04/13/17 10:59 Dose: 100 mg - Labs Labs: 04/13/17 08:13 PT 11.4 SECONDS (9.7-12.2) 04/13/17 14:22 INR 1.0 04/13/17 14:22 APTT 38 SECONDS (21-34) H 04/13/17 14:22 - Constitutional Appears: Well, No Acute Distress - Cardiovascular Exam Additional comments: +radial pulse - Extremities Exam Additional comments: sensation intact to rad/med/ul nerve distrib splint/sling intact - Neurological Exam Neurological Exam: Alert, Awake, Normal Gait, Oriented x3 Neuro motor strength exam: Left Upper Extremity: 5 (+ROM fingers/wrist flex/ext/ add/abd) - Psychiatric Exam Psychiatric exam: Normal Affect, Normal Mood - Skin Skin Exam: Dry, Normal Color, Warm Additional comments: very superficial abrasion to elbow noted during splint application yesterday. No erythema. Noted excoriations to B arms. Assessment and Plan (1) Nondisplaced fracture of neck of left radius Assessment & Plan: bone bruise/subchondral fx per MRI sling/splint, patient instructed to keep splint dry and intact, sling, elevate hand encourage OOB f/u in office 1 week for reevaluation, call for appointment Dr. Renae [phone] Status: Acute (2) Foot drop, left Assessment & Plan: chronic new ankle foot orthosis AFO rx on chart PT/OT OOB VTE proph Status: Chronic (3) Ulnar collateral ligament sprain of left elbow, initial encounter Assessment & Plan: see above Status: Acute
[2017-04-14 08:17] VITALS: BP 107/71; PULSE 69; RESP 18; TEMP 98.1
--- NOTE | 2017-04-14 12:36 | CP.PCM.PN ---
Subjective - Date & Time of Evaluation Date of Evaluation: 04/14/17 Time of Evaluation: 12:00 - Subjective Subjective: Hospitalist Progress Note (Patient was seen and examined at 12 pm 04/14/17) She was admitted to this hospitalist S/P Fall secondary to her history of Left Foot Drop. She was found to have a nondisplaced fracture of the neck of the left radius and left ulnar collateral ligament sprain. She was evaluated with X Rays of the Left Elbow/Knee and Rib/Chest as well as MRI of the Left UE and CT Head. She was seen by Orthopedic Nurse Lyudmila Velasquez who works with Dr. Anne Blank. Currently upon FULL ROS: Episode of having a bowel movement out in the hallway while walking. She explains that she has a history of IBS and sometimes is not able to get to the bathroom on time. Episode of N/V after a few bites of her breakfast sandwhich this morning but tolerating her lunch now Some pain in the left arm NO other complaints upon FULL ROS Exam: - Constitutional Appears: Well - Head Exam Head Exam: ATRAUMATIC, NORMAL INSPECTION, NORMOCEPHALIC - Eye Exam Eye Exam: EOMI, Normal appearance, PERRL - ENT Exam ENT Exam: Mucous Membranes Moist - Neck Exam Neck Exam: Full ROM - Respiratory Exam Respiratory Exam: Clear to Ausculation Bilateral, NORMAL BREATHING PATTERN - Cardiovascular Exam Cardiovascular Exam: REGULAR RHYTHM, +S1, +S2. absent: Murmur - Rectal Exam Rectal Exam: Deferred - Back Exam Additional comments: left arm and forearm in splint - Neurological Exam Neurological Exam: Alert, Awake, Oriented x3 - Psychiatric Exam Psychiatric exam: Normal Affect, Normal Mood - Skin Skin Exam: Dry, Normal Color, Warm Additional comments: scabs present on arms b/l and neck causing pruritis Assessments: 1). Nondisplaced Fracture of Neck Left Radius 2). Left Ulnar Collateral Ligament Sprain Left Elbow 3). Hx Left Foot Drop: I spoke with Manav and patient must make an appointment to be measured/fitted for left foot brace as they are custom made. 4). S/P Fall 5). Hypokalemia 6). Anemia of Chronic Disease 7). Chest Pain: LEFTY negative x 3 8). 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 The following instructions will be provided to patient upon discharge: 1). Call [facility] at [phone] to schedule an appointment to be measured/fitted for left foot brace. Prescription by Orthopedics Nurse has been provided to you so please bring this with you to your appointment. [facility] is located at [address] [place] [address] [place] [address]. 2). Call Orthopedics Dr. Hdez at [phone] to schedule an appointment to take place in 1 week for follow up. 3). Keep Left Sling/Splint dry and intact and keep the left hand elevated. 4). Please also schedule follow up with the [facility] located on Floor B of this hospital by calling [phone]. They will help to coordinate your care. 5). Please have the following the following prescription filled at your pharmacy. This medication should be used ONLY NEEDED FOR SEVER PAIN. Severe pain would be a pain level to the point where you are nausesous and/or extremely uncomfortable: Percocet 5/325 mg, 1 tablet by mouth every 8 hours as needed for severe pain, Dispense: #15, NO refills 6). If you experience constipation, you may drink 8 ounces of prune juice to help you with this. 7). Please take care. Triston Wyatt D.O. Objective - Vital Signs/Intake and Output Vital Signs (last 24 hours): Temp Pulse Resp BP Pulse Ox 98.1 F 69 18 107/71 99 04/14/17 07:00 04/14/17 07:00 04/14/17 07:00 04/14/17 07:00 04/14/17 07:00 - Medications Medications: Current Medications Benzocaine (Orajel) 0 MM DAILY@PRN PRN Famotidine (Pepcid) 20 mg PO BID [facility] Last Admin: 04/14/17 09:25 Dose: 20 mg Folic Acid (Folic Acid) 1 mg PO DAILY [facility] Last Admin: 04/14/17 09:25 Dose: 1 mg Heparin Sodium (Porcine) (Heparin) 5,000 units SC Q12H [facility] Last Admin: 04/14/17 05:30 Dose: 5,000 units Ketorolac Tromethamine (Toradol) 15 mg IVP Q6 PRN PRN Reason: Pain, moderate (4-7) Morphine Sulfate (Morphine) 4 mg IV Q4 PRN PRN Reason: Pain, severe (8-10) Last Admin: 04/13/17 18:15 Dose: 4 mg Ondansetron HCl (Zofran Inj) 4 mg IVP Q6H PRN PRN Reason: Nausea/Vomiting Saliva Substitute (Mouth Kote 236 Ml) 1 ml MM Q4H PRN PRN Reason: Dry mouth Thiamine HCl (Vitamin B1 Tab) 100 mg PO DAILY [facility] Last Admin: 04/14/17 09:25 Dose: 100 mg - Labs Labs: 04/13/17 08:13 PT 11.4 SECONDS (9.7-12.2) 04/13/17 14:22 INR 1.0 04/13/17 14:22 APTT 38 SECONDS (21-34) H 04/13/17 14:22
--- NOTE | 2017-04-14 12:39 | CARD ---
APPROVED REPORT EKG Measurement Heart [id number] OR [id number] <Conclusion> Normal sinus rhythm Cannot rule out Anterior infarct, age undetermined Abnormal ECG
--- NOTE | 2017-04-14 17:43 | CP.PCM.DIS ---
<Triston Wyatt - Last Filed: 04/14/17 19:25> Provider - Provider Date of Admission: 04/12/17 14:31 Attending physician: Glenn Rodarte DO Hospital Course - Lab Results Lab Results: Most Recent Lab Values WBC 5.3 K/uL (4.8-10.8) 04/12/17 12: RBC 3.04 Mil/uL (3.80-5.20) L 04/12/17 12: Hgb 9.4 g/dL (11.0-16.0) L 04/12/17 12: Hct 29.0 % (34.0-47.0) L 04/12/17 12: MCV 95.5 fL (81.0-99.0) 04/12/17 12: MCH 31.0 pg (27.0-31.0) 04/12/17 12: MCHC 32.4 g/dL (33.0-37.0) L 04/12/17 12: RDW 15.5 % (11.5-14.5) H 04/12/17 12:31 Plt Count 250 K/uL (130-400) 04/12/17 12: MPV 8.4 fL (7.2-11.7) 04/12/17 12: Neut % (Auto) 53.8 % (50.0-75.0) 04/12/17 12: Lymph % (Auto) 33.5 % (20.0-40.0) 04/12/17 12: [place] % (Auto) 8.8 % (0.0-10.0) 04/12/17 12: Eos % (Auto) 3.1 % (0.0-4.0) 04/12/17 12: Baso % (Auto) 0.8 % (0.0-2.0) 04/12/17 12: Neut # 2.9 K/uL (1.8-7.0) 04/12/17 12: Lymph # 1.8 K/uL (1.0-4.3) 04/12/17 12: [place] # 0.5 K/uL (0.0-0.8) 04/12/17 12: Eos # 0.2 K/uL (0.0-0.7) 04/12/17 12:31 Baso # 0.0 K/uL (0.0-0.2) 04/12/17 12:31 PT 11.4 SECONDS (9.7-12.2) 04/13/17 14:22 INR 1.0 04/13/17 14:22 APTT 38 SECONDS (21-34) H 04/13/17 14:22 Sodium 138 mmol/L (132-148) 04/13/17 08:13 Potassium 3.5 mmol/L (3.6-5.2) L 04/13/17 08:13 Chloride 109 mmol/L (98-107) H 04/13/17 08:13 Carbon Dioxide 20 mmol/L (22-30) L 04/13/17 08:13 Anion Gap 13 (10-20) 04/13/17 08:13 BUN 8 mg/dL (7-17) 04/13/17 08:13 Creatinine 1.1 MG/DL (0.7-1.2) 04/13/17 08:13 Est GFR ( Amer) > 60 04/13/17 08:13 Est GFR (Non-Af Amer) 52 04/13/17 08:13 Random Glucose 84 mg/dL (65-105) 04/13/17 08:13 Hemoglobin A1c 4.7 % (4.2-6.5) 04/12/17 17:12 Calcium 7.5 mg/dl (8.6-10.4) L 04/13/17 08:13 Magnesium 1.4 mg/dL (1.6-2.3) L 04/12/17 12:31 Iron 128 ug/dL (37-170) 04/13/17 14:22 TIBC 170 ug/dL (250-450) L 04/13/17 14:22 % Saturation 75 (20-55) H 04/13/17 14:22 Ferritin 72.9 ng/mL 04/13/17 14:22 Total Bilirubin 3.9 mg/dL (0.2-1.3) H 04/13/17 06:06 Direct Bilirubin 2.1 mg/dL (0.0-0.4) H 04/12/17 12:31 AST 25 U/L (14-36) 04/13/17 06:06 ALT 31 U/L (9-52) 04/13/17 06:06 Alkaline Phosphatase 86 U/L (38-126) 04/13/17 06:06 Total Creatine Kinase 51 U/L (30-135) 04/13/17 06:06 CK-MB (Mass) 0.98 ng/mL (0.0-3.38) 04/13/17 06:06 Troponin I < 0.0120 ng/mL (0.00-0.120) 04/13/17 14:22 Troponin I, Quant < 0.0120 ng/mL (0.00-0.120) 04/13/17 06:06 Total Protein 4.6 g/dL (6.3-8.3) L 04/13/17 06:06 Albumin 2.0 g/dL (3.5-5.0) L D 04/13/17 06:06 Globulin 2.6 gm/dL (2.2-3.9) 04/13/17 06:06 Albumin/Globulin Ratio 0.8 (1.0-2.1) L 04/13/17 06:06 Urine Color Mitzy (YELLOW) 04/13/17 07:33 Urine Clarity Hazy (Clear) 04/13/17 07:33 Urine pH 6.0 (5.0-8.0) 04/13/17 07:33 Ur Specific [place] 1.005 (1.003-1.030) 04/13/17 07:33 Urine Protein Negative mg/dL (NEGATIVE) 04/13/17 07:33 Urine Glucose (UA) Normal mg/dL (Normal) 04/13/17 07:33 Urine Ketones Negative mg/dL (NEGATIVE) 04/13/17 07:33 Urine Blood Negative (NEGATIVE) 04/13/17 07:33 Urine Nitrate Positive (NEGATIVE) H 04/13/17 07:33 Urine Bilirubin Negative (NEGATIVE) 04/13/17 07:33 Urine Urobilinogen Normal mg/dL (0.2-1.0) 04/13/17 07:33 Ur Leukocyte Esterase 2+ Sada/uL (Negative) H 04/13/17 07:33 Urine WBC (Auto) 16 /hpf (0-5) H 04/13/17 07:33 Urine RBC (Auto) 1 /hpf (0-3) 04/13/17 07:33 Ur Squamous Epith Cells 1 /hpf (0-5) 04/13/17 07:33 Urine Bacteria Rare (<OCC) 04/13/17 07:33 Urine Opiates Screen Positive (NEGATIVE) 04/13/17 08:29 Urine Methadone Screen Negative (NEGATIVE) 04/13/17 08:29 Ur Barbiturates Screen Negative (NEGATIVE) 04/13/17 08:29 Ur Phencyclidine Scrn Negative (NEGATIVE) 04/13/17 08:29 Ur Amphetamines Screen Negative (NEGATIVE) 04/13/17 08:29 U Benzodiazepines Scrn Negative (NEGATIVE) 04/13/17 08:29 U Oth Cocaine Metabols Negative (NEGATIVE) 04/13/17 08:29 U Cannabinoids Screen Negative (NEGATIVE) 04/13/17 08:29 Alcohol, Quantitative < 10 mg/dl (0-10) 04/12/17 17:12 Discharge Plan - Follow Up Plan Condition: STABLE Disposition: HOME/ ROUTINE Instructions: Elbow Fracture in Adults (DC), Hypokalemia (DC), Fall Prevention for Older Adults (GEN), Splint Care (DC), Fall Prevention (DC) Additional Instructions: The following instructions will be provided to patient upon discharge: 1). Call [facility] at [phone] to schedule an appointment to be measured/fitted for left foot brace. Prescription by Orthopedics Nurse has been provided to you so please bring this with you to your appointment. [facility] is located at [address] [place] [address] [place] [address]. 2). Call Orthopedics Dr. Hdez at [phone] to schedule an appointment to take place in 1 week for follow up. 3). Keep Left Sling/Splint dry and intact and keep the left hand elevated. 4). Please also schedule follow up with the [facility] located on Floor B of this hospital by calling [phone]. They will help to coordinate your care. 5). Please have the following the following prescription filled at your pharmacy. This medication should be used ONLY NEEDED FOR SEVER PAIN. Severe pain would be a pain level to the point where you are nauseous and/or extremely uncomfortable: Percocet 5/325 mg, 1 tablet by mouth every 8 hours as needed for severe pain, Dispense: #15, NO refills 6). If you experience constipation, you may drink 8 ounces of prune juice to help you with this. Referrals: [facility] [Outside] Jesus Olguin MD [Staff Provider] - Attending/Attestation - Attestation I have personally seen and examined this patient.: Yes I have fully participated in the care of the patient.: Yes I have reviewed all pertinent clinical information, including history, physical exam and plan: Yes Notes (Text): 04/14/17 19:25 Please also see my progress note 04/14/17. Triston Wyatt D.O. <Seth Tsang R - Last Filed: 04/15/17 07:33> Provider - Provider Date of Admission: 04/12/17 14:31 Attending physician: Glenn Rodarte DO Consults: Orthopedic - Dr Olguin Time Spent in preparation of Discharge (in minutes): 45 Hospital Course - Lab Results Lab Results: Most Recent Lab Values WBC 5.3 K/uL (4.8-10.8) 04/12/17 12:31 RBC 3.04 Mil/uL (3.80-5.20) L 04/12/17 12:31 Hgb 9.4 g/dL (11.0-16.0) L 04/12/17 12:31 Hct 29.0 % (34.0-47.0) L 04/12/17 12:31 MCV 95.5 fL (81.0-99.0) 04/12/17 12: MCH 31.0 pg (27.0-31.0) 04/12/17 12:31 MCHC 32.4 g/dL (33.0-37.0) L 04/12/17 12:31 RDW 15.5 % (11.5-14.5) H 04/12/17 12:31 Plt Count 250 K/uL (130-400) 04/12/17 12:31 MPV 8.4 fL (7.2-11.7) 04/12/17 12:31 Neut % (Auto) 53.8 % (50.0-75.0) 04/12/17 12:31 Lymph % (Auto) 33.5 % (20.0-40.0) 04/12/17 12:31 [place] % (Auto) 8.8 % (0.0-10.0) 04/12/17 12:31 Eos % (Auto) 3.1 % (0.0-4.0) 04/12/17 12:31 Baso % (Auto) 0.8 % (0.0-2.0) 04/12/17 12:31 Neut # 2.9 K/uL (1.8-7.0) 04/12/17 12:31 Lymph # 1.8 K/uL (1.0-4.3) 04/12/17 12: [place] # 0.5 K/uL (0.0-0.8) 04/12/17 12: Eos # 0.2 K/uL (0.0-0.7) 04/12/17 12: Baso # 0.0 K/uL (0.0-0.2) 04/12/17 12: PT 11.4 SECONDS (9.7-12.2) 04/13/17 14:22 INR 1.0 04/13/17 14:22 APTT 38 SECONDS (21-34) H 04/13/17 14:22 Sodium 138 mmol/L (132-148) 04/13/17 08:13 Potassium 3.5 mmol/L (3.6-5.2) L 04/13/17 08:13 Chloride 109 mmol/L (98-107) H 04/13/17 08:13 Carbon Dioxide 20 mmol/L (22-30) L 04/13/17 08:13 Anion Gap 13 (10-20) 04/13/17 08:13 BUN 8 mg/dL (7-17) 04/13/17 08:13 Creatinine 1.1 MG/DL (0.7-1.2) 04/13/17 08:13 Est GFR ( Amer) > 60 04/13/17 08:13 Est GFR (Non-Af Amer) 52 04/13/17 08:13 Random Glucose 84 mg/dL (65-105) 04/13/17 08:13 Hemoglobin A1c 4.7 % (4.2-6.5) 04/12/17 17:12 Calcium 7.5 mg/dl (8.6-10.4) L 04/13/17 08:13 Magnesium 1.4 mg/dL (1.6-2.3) L 04/12/17 12:31 Iron 128 ug/dL (37-170) 04/13/17 14:22 TIBC 170 ug/dL (250-450) L 04/13/17 14:22 % Saturation 75 (20-55) H 04/13/17 14:22 Ferritin 72.9 ng/mL 04/13/17 14:22 Total Bilirubin 3.9 mg/dL (0.2-1.3) H 04/13/17 06:06 Direct Bilirubin 2.1 mg/dL (0.0-0.4) H 04/12/17 12:31 AST 25 U/L (14-36) 04/13/17 06:06 ALT 31 U/L (9-52) 04/13/17 06:06 Alkaline Phosphatase 86 U/L (38-126) 04/13/17 06:06 Total Creatine Kinase 51 U/L (30-135) 04/13/17 06:06 CK-MB (Mass) 0.98 ng/mL (0.0-3.38) 04/13/17 06:06 Troponin I < 0.0120 ng/mL (0.00-0.120) 04/13/17 14:22 Troponin I, Quant < 0.0120 ng/mL (0.00-0.120) 04/13/17 06:06 Total Protein 4.6 g/dL (6.3-8.3) L 04/13/17 06:06 Albumin 2.0 g/dL (3.5-5.0) L D 04/13/17 06:06 Globulin 2.6 gm/dL (2.2-3.9) 04/13/17 06:06 Albumin/Globulin Ratio 0.8 (1.0-2.1) L 04/13/17 06:06 Urine Color Mitzy (YELLOW) 04/13/17 07:33 Urine Clarity Hazy (Clear) 04/13/17 07:33 Urine pH 6.0 (5.0-8.0) 04/13/17 07:33 Ur Specific [place] 1.005 (1.003-1.030) 04/13/17 07:33 Urine Protein Negative mg/dL (NEGATIVE) 04/13/17 07:33 Urine Glucose (UA) Normal mg/dL (Normal) 04/13/17 07:33 Urine Ketones Negative mg/dL (NEGATIVE) 04/13/17 07:33 Urine Blood Negative (NEGATIVE) 04/13/17 07:33 Urine Nitrate Positive (NEGATIVE) H 04/13/17 07:33 Urine Bilirubin Negative (NEGATIVE) 04/13/17 07:33 Urine Urobilinogen Normal mg/dL (0.2-1.0) 04/13/17 07:33 Ur Leukocyte Esterase 2+ Sada/uL (Negative) H 04/13/17 07:33 Urine WBC (Auto) 16 /hpf (0-5) H 04/13/17 07:33 Urine RBC (Auto) 1 /hpf (0-3) 04/13/17 07:33 Ur Squamous Epith Cells 1 /hpf (0-5) 04/13/17 07:33 Urine Bacteria Rare (<OCC) 04/13/17 07:33 Urine Opiates Screen Positive (NEGATIVE) 04/13/17 08:29 Urine Methadone Screen Negative (NEGATIVE) 04/13/17 08:29 Ur Barbiturates Screen Negative (NEGATIVE) 04/13/17 08:29 Ur Phencyclidine Scrn Negative (NEGATIVE) 04/13/17 08:29 Ur Amphetamines Screen Negative (NEGATIVE) 04/13/17 08:29 U Benzodiazepines Scrn Negative (NEGATIVE) 04/13/17 08:29 U Oth Cocaine Metabols Negative (NEGATIVE) 04/13/17 08:29 U Cannabinoids Screen Negative (NEGATIVE) 04/13/17 08:29 Alcohol, Quantitative < 10 mg/dl (0-10) 04/12/17 17:12 - Hospital Course Hospital Course: CC: "I fell this morning" HPI: 56 year old female with PMHx of DVT, PE, anemia, HTN, cholelithiasis, gastric bypass, left foot drop, IBS, presents to the ED after falling. Patient has a left foot drop that she uses a device that helps stabilize her. She reports that device was not working and has not replaced it. While walking on the sidewalk this morning, she fell onto her left side. Patient reports having pain in her left arm, elbow, knee and ribs. She has chest and rib pain with breathing and movement. Patient reports having nausea upon arrival, dysuria, dysphagia, and leg/ankle swelling. Patient has noticed a change in vision over the last week and 17lbs weight loss over 3 weeks. In the ED, the patient had potassium level of 2.1 Patient denies chest pain due to the heart, abdominal pain, vomiting, fever, shortness of breath, cough, and dizziness. PMD: none PMHX: DVT and PE 2014; anemia, left foot drop, HTN, IBS PSx:gastric bypass 1999; back surgery 2011; tubal ligation 29 years ago; FamHx: Father "heart problems" & DM; Mother-seizures; siblings- healthy SocHx: "smokes 1-2 cigarettes per day for 12 years"; social drinker; denies drug use; does not work- on disability; lives in a "rooming" place Allergies: NKDA Medications: none; takes medications when given by hospital but after 30 days, runs out and does not refill. Hospital Course: Patient was initially seen in the ED two days ago with c/o left-sided chest, elbow and knee pain s/p trip and fall that morning. Imaging of the knee and ribs were negative. MRI of the left arm revealed a non-displaced fracture of the neck of the left radius as well as an ulnar collateral ligament sprain. Ortho was consulted. Recommend sling for arm and Left foot orthrosis for her chronic foot drop. CT head was also done that showed no acute changes. While in the ED, her labwork reveal hypokalemia at 2.1. She was subsequently given K-dur with improvement to normal levels. During her stay, patient complained of chest pain "not due to the heart" and unclear if related to the fall. LEFTY's were ordered which were negative x 3. EKG remained at NSR on tele. Patient cleared for discharge. Provided with Rx percocet for pain and left ankle foot orthosis brace for support. Instructed to f/u with outpatient ortho for further management and PMD. Discharge Exam - Head Exam Head Exam: ATRAUMATIC, NORMAL INSPECTION, NORMOCEPHALIC - Eye Exam Eye Exam: EOMI, Normal appearance, PERRL Pupil Exam: NORMAL ACCOMODATION, PERRL - ENT Exam ENT Exam: Mucous Membranes Moist - Cardiovascular Exam Cardiovascular Exam: REGULAR RHYTHM - GI/Abdominal Exam GI & Abdominal Exam: Normal Bowel Sounds - Rectal Exam Rectal Exam: Deferred - Neurological Exam Neurological exam: Alert, Oriented x3 - Psychiatric Exam Psychiatric exam: Normal Affect, Normal Mood - Skin Skin Exam: Dry, Intact, Normal Color, Warm
--- NOTE | 2017-04-15 20:22 | CP.PCM.CON ---
History of Present Illness - History of Present Illness History of Present Illness: 56 yo female Past Patient History - Infectious Disease Hx of Infectious Diseases: None - Past Medical History & Family History Past Medical History?: Yes - Past Social History Smoking Status: Former Smoker - CARDIAC Hx Hypertension: Yes - PULMONARY Hx Pulmonary Embolism: Yes - NEUROLOGICAL Hx Neurological Disorder: No - HEENT Hx Epistaxis: Yes - RENAL Hx Chronic Kidney Disease: No - ENDOCRINE/METABOLIC Hx Endocrine Disorders: No - HEMATOLOGICAL/ONCOLOGICAL Hx Blood Disorders: No - INTEGUMENTARY Hx Dermatological Problems: Yes - MUSCULOSKELETAL/RHEUMATOLOGICAL Hx Musculoskeletal Disorders: Yes Other/Comment: Left foot drop - GASTROINTESTINAL Hx Gastrointestinal Disorders: Yes Hx Gastroesophageal Reflux: Yes Hx Irritable Bowel: Yes - GENITOURINARY/GYNECOLOGICAL Hx Genitourinary Disorders: No - PSYCHIATRIC Hx Substance Use: No - SURGICAL HISTORY Hx Surgeries: Yes Hx Gastric Bypass Surgery: Yes Other/Comment: Back Surgery for herniated Disc - ANESTHESIA Hx Anesthesia: Yes Hx Anesthesia Reactions: No Meds Allergies/Adverse Reactions: Allergies Allergy/AdvReac Type Severity Reaction Status Date / Time No Known Allergies Allergy Verified 04/12/17 11:30 Results - Vital Signs Recent Vital Signs: Last Vital Signs Temp 98.1 F 04/14/17 07:00 Pulse 69 04/14/17 07:00 Resp 18 04/14/17 07:00 BP 107/71 04/14/17 07:00 Pulse Ox 99 04/14/17 07:00 - Labs Result Diagrams: 04/12/17 12:31 04/13/17 08:13
== END 2017-04-14 15:30 | disposition home or self-care (01) | DRG 563 ==
LOC: C.ER 11:26 → C.9E 14:31 → C.6T 15:43
PROVIDERS: ADMIT Hospitalist; ATTEND Hospitalist
DX: S52.135A Nondisplaced fracture of neck of left radius, initial encounter for closed fracture (principal); S53.32XA Traumatic rupture of left ulnar collateral ligament, initial encounter; S80.212A Abrasion, left knee, initial encounter; I10 Essential (primary) hypertension; E87.6 Hypokalemia; D64.9 Anemia, unspecified; W01.0XXA Fall on same level from slipping, tripping and stumbling without subsequent striking against object, initial encounter; F17.210 Nicotine dependence, cigarettes, uncomplicated; L29.9 Pruritus, unspecified; M25.429 Effusion, unspecified elbow; M21.372 Foot drop, left foot; R07.81 Pleurodynia; Z86.711 Personal history of pulmonary embolism; Z86.718 Personal history of other venous thrombosis and embolism; Z91.19 Patient's noncompliance with other medical treatment and regimen; Z98.84 Bariatric surgery status